=== PATIENT | female | born 1960 | race Two or more races ===

== ENCOUNTER 2017-09-12 12:29 | Emergency (ER) | payer OTHER ==
[~2017-09-12] VITALS: Ht 160 cm; Wt 61.7 kg
[~2017-09-12 12:29] MED LIST: BENADRYL50 MG; CIPRO500 MG PO; FIORICET 50-301 EACH; FLAGYL500MG PO; PANTOPRAZOLE SO40 MG PO; PROZAC10 MG; RISPERDAL0.25 MG; VISTARIL25 MG
[2017-09-12] MEDS ORDERED: SYNTHROID75 MCG (13:40)
[2017-09-12] MEDS ORDERED: NEURONTIN600 MG (13:43)
== END 2017-09-12 21:54 | disposition home or self-care (01) ==
LOC: ER 12:29
DX: K80.10 Calculus of gallbladder with chronic cholecystitis without obstruction (principal)

== ENCOUNTER 2017-10-15 05:43 | Day surgery (SDC) | payer OTHER ==
[~2017-10-15 05:43] MED LIST changes: +FLEXERIL PO; +FOSAMAX70 MG PO; +NEURONTIN600 MG; +SYNTHROID75 MCG; +TYLENOL-CODEINE1 TA1 PO; +ZANTAC150 MG PO
[2017-10-15] MEDS ORDERED: ULTRACET PO (09:34)
[2017-10-15] MEDS ORDERED: ZANTAC300 MG PO (09:34)
[2017-10-15] MEDS ORDERED: KEFLEX500 MG PO (09:34)
== END 2017-10-15 11:30 | disposition home or self-care (01) ==
LOC: CIR.AMB 05:43
DX: K80.10 Calculus of gallbladder with chronic cholecystitis without obstruction (principal)

== ENCOUNTER → 2017-12-01 | Emergency (ER) | payer OTHER ==
[~2017-12-01] VITALS: Ht 149.9 cm; Wt 49.9 kg
[~2017-12-01] MED LIST changes: +KEFLEX500 MG PO; +ULTRACET PO; +ZANTAC300 MG PO
== END | disposition home or self-care (01) ==
LOC: ER 10:51
DX: K52.9 Noninfective gastroenteritis and colitis, unspecified (principal)

== ENCOUNTER 2023-02-08 07:28 | Emergency (ER) | payer OTHER ==
[~2023-02-08] VITALS: Ht 152.4 cm; Wt 65.8 kg
[2023-02-08 08:58] LABS: HEMATOCRIT 42.6 % (36.0-45.00); HEMOGLOBIN 14.3 g/dL (12.0-15.00); MEAN CELL VOLUME 86.7 fL (80.00-100.00); MEAN CORPUSCULAR HEMOGLOBIN 29.1 pg (27.00-32.0); MEAN CORPUSCULAR HGB CONC 33.6 g/dl (32.0-36.0); PLATELET COUNT 374 K/uL (150-450); RED BLOOD COUNT 4.92 M/uL (4.00-6.00); RED CELL DISTRIBUTION WIDTH 13.3 % (11.5-14.5)
[2023-02-08 09:04] LABS: URINE APPEARANCE Clear; URINE BILIRRUBIN Negative (NEGATIVE); URINE BLOOD Negative; URINE COLOR Yellow; URINE GLUCOSE Negative (NEGATIVE); URINE LEUKOCYTE Trace; URINE NITRATE Negative; URINE PROTEIN Negative (NEGATIVE); URINE UROBILINOGEN 0.2 E.U./dl
[2023-02-08 09:07] LABS: URINE BACTERIA 1792.8 uL (0.0-1933); URINE EPITHELIAL CELLS 54.8 uL (0.0-38.8); URINE RBC 5.6 uL (0.0-20.8); URINE WBC 19.1 uL (0.0-23.2)
[2023-02-08 09:30] LABS: CALCIUM 9.3 mg/dL (8.5-10.1); CREATININE SERUM 0.64 mg/dL (0.55-1.02); GFR 94.34; POTASSIUM 3.99 mEq/L (3.5-5.1)
== END 2023-02-08 15:29 | disposition home or self-care (01) ==
LOC: ER 07:28
PROVIDERS: Emergency Medicine
DX: K52.9 Noninfective gastroenteritis and colitis, unspecified (principal)